=== PATIENT | female | born 1980 | race African-American/Black ===

== ENCOUNTER 2020-08-11 18:23 | Emergency (ER) | payer OTHER, SELFPAY ==
[2020-08-11 18:42] VITALS: BP 160/92; PULSE 66; RESP 18; TEMP 37.3; O2SAT 98; BMI 30.9
[2020-08-11 21:13] LABS: MANUAL DIFF FLAG NO
[2020-08-11] MEDS: ondansetron HCL 4 MG/2 ML VIAL IVPUSH ×2 (21:17→23:56)
[2020-08-11] MEDS: 0.9 % Sodium Chloride 1,000 ML 999 ML IV ×2 (21:17→21:58)
[2020-08-11 21:21] LABS: Basophils Percent Auto 0.2 % (0-2); Hematocrit 34.7 % (37-47); Hemoglobin 11.8 g/dl (12.0-16.0); Imm Gran Abs Auto 0.03 X10*3/uL (0.00-0.03); Imm Gran Pct Auto 0.3 % (0.0-0.4); Lymphocytes Absolute Auto 1.5 X10*3/uL (1.2-4.9); Lymphocytes Percent Auto 15.9 % (20-40); Mean Corpuscular Hemoglobin 31.2 pg (27.0-33.0); Mean Corpuscular Volume 91.8 fL (80-98); Mean Platelet Volume 9.5 fL (9.4-12.3); Monocytes Absolute Auto 0.5 X10*3/uL (0.1-1.2); Monocytes Percent Auto 5.4 % (2-11); Neutrophils Absolute Auto 7.4 X10*3/uL (2.0-8.3); Neutrophils Percent Auto 78.2 % (45-73); Platelet Count 279 X10*3/uL (160-400); Red Blood Count 3.78 X10*6/uL (4.20-5.50); Red Cell Distribution Width 13.6 % (11.0-16.0); White Blood Count 9.4 X10*3/uL (4.8-10.8)
--- NOTE | 2020-08-11 21:21 | PC.NURSE ---
Pt found resting in bed with blanket covering head. Pt reports a recent tummy tuck on 07/25, states her abdominal drain was removed on Monday 08/07. Pt reports +N/V/D x 3 days, states she has been unable to eat or hold her medications down. Pt ambulating to the bathroom to provide urine sample. IV established, labs and UA obtained and sent. VSS at this time. Awaiting primary MD davis. Continue to monitor.
[2020-08-11 21:22] VITALS: BP 141/72; PULSE 52; RESP 18; TEMP 36.9; O2SAT 100
--- NOTE | 2020-08-11 21:26 | PC.NURSE ---
at bedside for primary eval.
[2020-08-11 21:34] LABS: Appearance Urine HAZY; Color Urine YELLOW; Glucose Urine UA NEG (NEG); Leukocyte Esterase Urine 1+ (NEG); Nitrite Urine POS (NEG); Specific Gravity - Urine 1.025 (1.005-1.025); UACC Culture Trigger YES; Urine Blood 1+ (NEG); Urine Ketones 5 MG/DL (NEG); Urine Protein NEG (NEG-TRACE)
--- NOTE | 2020-08-11 21:38 | ED.GENADULT ---
HPI - General Adult General Chief complaint: General Medical Stated complaint: vomiting Time Seen by Provider: 08/11/20 21:38 Source: patient Mode of arrival: ambulatory History of Present Illness HPI narrative: This is a 40-year-old female who presents with 3 days of nausea, vomiting, nonbloody diarrhea that started after she ate leftover meat loaf and she denies any associated fever, chills, urinary pain/burning/frequency. However, her history is significant for having had a abdominal plasty on 07/25 in [place]. Patient denies any redness/swelling/drainage from the site and reports that her drain was removed 4 days ago. Related Data Previous Rx's Medication Instructions Recorded ciprofloxacin HCl [Cipro] 500 mg PO Q12H 7 Days #14 tab 08/12/20 ondansetron HCl [Zofran] 4 mg PO Q8H PRN #7 tab 08/12/20 Allergies Allergy/AdvReac Type Severity Reaction Status Date / Time No Known Allergies Allergy Verified 08/11/20 21:17 Review of Systems Review of Systems: Pertinent positives and negatives as stated in HPI 10 point review of systems is otherwise negative. PMFSH Past Medical History Source: nursing notes reviewed Social History Social History Advance Directives: No Advance Directives Information Provided: No Patient : No Physical Exam Vital Signs: Vital Signs: Last Vital Signs Temp 98.5 F 08/11/20 21:22 Pulse 52 08/11/20 21:22 Resp 20 08/11/20 23:58 BP 175/82 H 08/11/20 23:58 Pulse Ox 100 08/11/20 21:22 Body Mass Index 30.9 VITAL SIGNS: Reviewed. GENERAL: Well developed, well nourished, in no acute distress. HEAD: Normocephalic/atraumatic EYES: PERRLA, EOMI OROPHARYNX: no oral lesions noted, posterior pharynx clear LUNGS: Normal breath sounds. No adventitious sounds or accessory muscle use. SpO2<100> CARDIOVASCULAR: Regular rate and rhythm without noted murmurs ABDOMEN: Soft, non-tender, non-distended with bowel sounds. NEUROLOGIC: Alert and oriented x 4. Course Course Course Narrative: This is a 40-year-old female with history and clinical presentation suspicious for food poisoning, gastroenteritis, but will rule out UTI and no evidence for obstructive symptoms. Review of all investigations consistent with UTI, but still may have a component of food poisoning. Patient was given IV fluid resuscitation, initial antibiotics, and on re-evaluation reports improvement of symptoms and was able to tolerate oral intake. She will be discharged home in stable condition with instructions to complete entire course of antibiotics and follow up with her primary care provider. Medical Decision Making Lab Data Result diagrams: 08/11/20 21:08 08/11/20 21:08 Labs: Lab Results 08/11/20 08/11/20 08/11/20 Range/Units 21:08 21:08 21:08 WBC 9.4 (4.8-10.8) X10*3/uL RBC 3.78 L (4.20-5.50) X10*6/uL Hgb 11.8 L (12.0-16.0) g/dl Hct 34.7 L (37-47) % MCV 91.8 (80-98) fL MCH 31.2 (27.0-33.0) pg MCHC 34.0 (31.0-35.0) g/dl RDW 13.6 (11.0-16.0) % Plt Count 279 (160-400) X10*3/uL MPV 9.5 (9.4-12.3) fL Immature Gran % (Auto) 0.3 (0.0-0.4) % Neut % (Auto) 78.2 H (45-73) % Lymph % (Auto) 15.9 L (20-40) % [place] % (Auto) 5.4 (2-11) % Eos % (Auto) 0.0 (0-4) % Baso % (Auto) 0.2 (0-2) % Lymph # (Auto) 1.5 (1.2-4.9) X10*3/uL [place] # (Auto) 0.5 (0.1-1.2) X10*3/uL Eos # (Auto) 0.0 (0.0-0.4) X10*3/uL Baso # (Auto) 0.0 (0.0-0.2) X10*3/uL Abs Immat Gran (auto) 0.03 (0.00-0.03) X10*3/uL Absolute Neuts (auto) 7.4 (2.0-8.3) X10*3/uL Absolute Nucleated RBC 0.000 (0.0-0.012) X10*3/uL Nucleated RBC % (auto) 0.0 (0.0-0.2) /100WBC Sodium 137 (135-145) mmol/L Potassium 3.8 (3.3-5.1) mmol/L Chloride 101 (96-108) mmol/L Carbon Dioxide 25 (22-29) mmol/L Anion Gap 15 (12-20) BUN 12 (9-16) mg/dL Creatinine 0.77 (0.5-1.4) mg/dL Estim Creat Clear Calc 98.3 Estimated GFR > 60 Random Glucose 92 (60-115) mg/dL Calcium 9.5 (8.4-10.2) mg/dL Total Bilirubin 0.8 (0.0-1.0) mg/dL AST 40 H (5-31) U/L ALT 76 H (0-31) U/L Alkaline Phosphatase 66 (39-117) U/L Total Protein 7.0 (6.5-8.0) g/dL Albumin 4.0 (3.5-5.0) g/dL Lipase 24 (8-78) U/L Urine Color YELLOW Urine Appearance [place] Urine pH 6.0 (5.0-8.0) Ur Specific [place] 1.025 (1.005-1.025) Urine Protein NEG (NEG-TRACE) MG/DL Urine Glucose (UA) NEG (NEG) MG/DL Urine Ketones 5 (NEG) MG/DL Urine Blood 1+ H (NEG) Urine Nitrite POS H (NEG) Ur Leukocyte Esterase 1+ H (NEG) Urine RBC 1-4 (0) /HPF Urine WBC 1-4 (0-4) /HPF Ur Squamous Epith Cells TRACE /LPF Urine Bacteria 2+ /LPF Discharge Plan Discharge Clinical Impression: Pyelonephritis, Food poisoning Patient Disposition: Home, Self-Care Instructions: Kidney Infection (ED), Food Poisoning (ED) Additional Instructions: 1. Increase fluid hydration especially with water. 2. Please follow-up with the primary care provider in the next 2-3 days for re-evaluation. Return to the ER for any acute worsening of your symptoms. Prescriptions: New ciprofloxacin HCl [Cipro] 500 mg tablet 500 mg PO Q12H 7 Days Qty: 14 RF: 0 ondansetron HCl [Zofran] 4 mg tablet 4 mg PO Q8H PRN (Reason: nausea and vomiting) Qty: 7 RF: 0 Referrals: Physician,Unknown [Primary Care Provider] - 2 days
[2020-08-11 21:43] LABS: Bacteria Urine 2+ /LPF; Squamous Epithelial Cell Urine TRACE /LPF
[2020-08-11 21:50] LABS: Alanine Aminotransferase 76 U/L (0-31); Alkaline Phosphatase 66 U/L (39-117); Anion Gap 15 (12-20); Aspartate Amino Transferase 40 U/L (5-31); Bilirubin Total 0.8 mg/dL (0.0-1.0); Blood Urea Nitrogen 12 mg/dL (9-16); Calcium 9.5 mg/dL (8.4-10.2); Carbon Dioxide 25 mmol/L (22-29); Chloride 101 mmol/L (96-108); Creatinine Clr Calc Pharmacy 98.3; Estimated Glomerular Filt Rate > 60; Glucose Random 92 mg/dL (60-115); Lipase 24 U/L (8-78); Potassium 3.8 mmol/L (3.3-5.1); Sodium 137 mmol/L (135-145)
[2020-08-11] MEDS: cefTRIAXone sodium 1 GM in 0.9 % Sodium Chloride 50 ML IV (21:58)
--- NOTE | 2020-08-11 22:01 | PC.NURSE ---
Medicated per APR. Pt resting in bed at this time. Continue to monitor.
[2020-08-11 23:58] VITALS: BP 175/82; RESP 20
--- NOTE | 2020-08-12 00:01 | PC.NURSE ---
Medicated per MAR. VSS. Pt trying PO challenge. Continue to monitor.
[2020-08-12 01:20] VITALS: BP 149/88; PULSE 60; RESP 16
== END 2020-08-12 01:22 | disposition home or self-care (01) ==
PROVIDERS: Emergency Provider Student in an Organized Health Care Education/Training Program
DX: A05.9 Bacterial foodborne intoxication, unspecified (principal); N12 Tubulo-interstitial nephritis, not specified as acute or chronic
CPT/HCPCS: 36415; 80053; 81001; 81003; 83690; 85025; 87086; 87088; 87186; 96361; 96365; 96375; 96376; 99284; J0696; J2405

== ENCOUNTER 2020-09-10 07:52 | Emergency (ER) | payer OTHER, SELFPAY ==
[2020-09-10 08:03] VITALS: BP 146/88; PULSE 82; RESP 18; TEMP 36.6; O2SAT 98; BMI 31.4
[2020-09-10] MEDS: ondansetron HCL 4 MG/2 ML VIAL IVPUSH (08:50)
[2020-09-10] MEDS: 0.9 % Sodium Chloride 1,000 ML 999 ML IVCONT (08:50)
[2020-09-10 08:51] LABS: MANUAL DIFF FLAG NO
[2020-09-10 08:54] LABS: Basophils Percent Auto 0.4 % (0-2); Eosinophils Absolute Auto 0.2 X10*3/uL (0.0-0.4); Glucose Urine UA NEG (NEG); Hematocrit 38.4 % (37-47); Hemoglobin 12.4 g/dl (12.0-16.0); Imm Gran Abs Auto 0.02 X10*3/uL (0.00-0.03); Imm Gran Pct Auto 0.3 % (0.0-0.4); Leukocyte Esterase Urine NEG (NEG); Lymphocytes Absolute Auto 1.8 X10*3/uL (1.2-4.9); Lymphocytes Percent Auto 22.8 % (20-40); Mean Corpuscular HGB Conc 32.3 g/dl (31.0-35.0); Mean Corpuscular Hemoglobin 30.6 pg (27.0-33.0); Mean Corpuscular Volume 94.8 fL (80-98); Mean Platelet Volume 10.4 fL (9.4-12.3); Monocytes Absolute Auto 0.5 X10*3/uL (0.1-1.2); Monocytes Percent Auto 5.9 % (2-11); Neutrophils Absolute Auto 5.4 X10*3/uL (2.0-8.3); Neutrophils Percent Auto 68.6 % (45-73); Nitrite Urine NEG (NEG); Platelet Count 174 X10*3/uL (160-400); Red Blood Count 4.05 X10*6/uL (4.20-5.50); Red Cell Distribution Width 12.9 % (11.0-16.0); Specific Gravity - Urine 1.025 (1.005-1.025); Urine Blood TRACE (NEG); Urine Ketones NEG (NEG); Urine Protein NEG (NEG-TRACE); White Blood Count 7.9 X10*3/uL (4.8-10.8)
[2020-09-10 08:56] LABS: Appearance Urine CLEAR; Color Urine YELLOW
[2020-09-10 08:57] LABS: UPreg QC Valid YES; Urine Pregnancy NEGATIVE (NEGATIVE)
[2020-09-10 08:59] LABS: INTERNATIONAL NORM RATIO 0.9 (0.9-1.1); Prothrombin Time 10.3 SEC (9.9-13.0)
[2020-09-10 09:01] LABS: Partial Thromboplastin Time 30.8 SEC (24.1-38.0)
[2020-09-10 09:08] LABS: Squamous Epithelial Cell Urine TRACE /LPF; WBC Urine 0 /HPF (0-4)
--- NOTE | 2020-09-10 09:12 | ED_ITS ---
HPI - General Adult General Chief complaint: General Medical Stated complaint: Stomach Pain, Possible swelling Time Seen by Provider: 09/10/20 08:07 Source: patient Mode of arrival: ambulatory History of Present Illness HPI narrative: 40-year-old female with a past medical history of and abdominoplasty in [place] on 07/25/2020 presenting to the ED complaining of abdominal discomfort, bloating/distension with suspected fluid buildup since 1 week s/p procedure. Also reports nausea. Was seen at [facility] on Friday had labs/US showing seroma, was recommended to follow up outpatient with Plastic surgery however cannot get appointment until October. Reports continued pain. Denies fever, chills, vomiting, diarrhea /constipation, dysuria / hematuria. Related Data Previous Rx's Medication Instructions Recorded ciprofloxacin HCl [Cipro] 500 mg PO Q12H 7 Days #14 tab 08/12/20 ondansetron HCl [Zofran] 4 mg PO Q8H PRN #7 tab 08/12/20 Allergies Allergy/AdvReac Type Severity Reaction Status Date / Time No Known Allergies Allergy Verified 08/11/20 21:17 Review of Systems Review of Systems: Constitutional: No Fever, No Chills, No Fatigue, No So ise Cardiovascular: No Chest Pain, No SOB, No Edema Respiratory: No Cough, No Dyspnea Gastrointestinal: + Nausea, No Vomiting, No Diarrhea, No Constipation, + Abdominal pain Genitourinary: No Dysuria, No Urinary Frequency, No Hematuria, No Flank Pain Musculoskeletal: No joint pain, No Myalgias Skin: No Skin Lesions, No rash Neuro: No Weakness, No Headache Yes all other systems are reviewed and are negative [facility] Past Medical History Attestation statement: The following information was validated with the patient. Surgical History (Updated 09/10/20 @ 08:07 by Addis Henson) Hx of abdominoplasty Social History Social History Advance Directives: Yes Advance Directives Information Provided: Yes Advance Directives on File: No Physical Exam Vital Signs: Vital Signs: Last Vital Signs Temp 97.9 F 09/10/20 08:03 Pulse 82 09/10/20 08:03 Resp 18 09/10/20 08:03 BP 146/88 H 09/10/20 08:03 Pulse Ox 98 09/10/20 08:03 Body Mass Index 31.4 Const: General: cooperative, healthy appearing and no acute distress Orientation/consciousness: patient oriented x3 Limitations: no limitations HENMT: Head: Yes normal to inspection Ears: hearing grossly normal bilaterally General nose exam: Normal external nose present Face and sinus: Yes normal facial exam Eyes: General: appearance normal, both eyes and all related structures EOM: EOMs intact bilaterally Neck: Neck: Yes normal visual inspection and Yes no meningeal signs Resp: Effort & Inspection: normal respiratory effort and no respiratory distress Cardio: Rate: regular rate GI: Other: + abdominal swelling. Incision site noted, dry/clean & intact without surrounding cellulitis, no fluctuance /induration, no drainage or dehiscence Inspection: Yes normal to inspection Palpation (GI): Soft to palpation, nontender (RLQ/lower abdomen), no guarding and not rigid : General: Yes no CVA tenderness Back/Spine/Pelvis: Back: no CVA tenderness Skin: Rashes: no rashes Wounds: no wounds Neuro: General: patient oriented x3 and no meningeal signs Gait exam (Neuro): Normal gait present Extrem: General: Yes normal to inspection Course Course Course Narrative: -no leukocytosis, H/H stable, coags stable, labs otherwise unremarkable. UA negative. Patient can follow-up with General surgery, Dr. Roman Labs/results discussed with patient including worrisome signs and symptoms and needed follow-up with General surgery. Medical Decision Making MDM Narrative Medical decision making narrative: 40-year-old female with a past medical history of and abdominoplasty in [place] on 07/25/2020 presenting to the ED complaining of abdominal discomfort, bloating/distension with suspected fluid buildup since 1 week s/p procedure. Also reports nausea. On exam VSS, NAD/ nontoxic, abdomen soft with notable swelling and TTP, no rebound or guarding. Incision site looks dry and clean /no cellulitis or drainage. Concern for seroma / hematoma. Lower concern for abscess or underlying infection. Obtained ultrasound report from a 09/04/2020 showing right mid lower quadrant postsurgical seroma measuring up to 16.4 cm. A smaller postsurgical seroma in the left mid lower quadrant is noted measuring up to 5.9 centimetres plan: Labs, UA, consult surgery Lab Data Result diagrams: 09/10/20 08:46 09/10/20 08:45 Labs: Lab Results 09/10/20 09/10/20 09/10/20 Range/Units 08:45 08:45 08:46 WBC 7.9 (4.8-10.8) X10*3/uL RBC 4.05 L (4.20-5.50) X10*6/uL Hgb 12.4 (12.0-16.0) g/dl Hct 38.4 (37-47) % MCV 94.8 (80-98) fL MCH 30.6 (27.0-33.0) pg MCHC 32.3 (31.0-35.0) g/dl RDW 12.9 (11.0-16.0) % Plt Count 174 D (160-400) X10*3/uL MPV 10.4 (9.4-12.3) fL Immature Gran % (Auto) 0.3 (0.0-0.4) % Neut % (Auto) 68.6 (45-73) % Lymph % (Auto) 22.8 (20-40) % [place] % (Auto) 5.9 (2-11) % Eos % (Auto) 2.0 (0-4) % Baso % (Auto) 0.4 (0-2) % Lymph # (Auto) 1.8 (1.2-4.9) X10*3/uL [place] # (Auto) 0.5 (0.1-1.2) X10*3/uL Eos # (Auto) 0.2 (0.0-0.4) X10*3/uL Baso # (Auto) 0.0 (0.0-0.2) X10*3/uL Abs Immat Gran (auto) 0.02 (0.00-0.03) X10*3/uL Absolute Neuts (auto) 5.4 (2.0-8.3) X10*3/uL Absolute Nucleated RBC 0.000 (0.0-0.012) X10*3/uL Nucleated RBC % (auto) 0.0 (0.0-0.2) /100WBC PT 10.3 (9.9-13.0) SEC INR 0.9 (0.9-1.1) APTT 30.8 (24.1-38.0) SEC Sodium 141 (135-145) mmol/L Potassium 4.2 (3.3-5.1) mmol/L Chloride 108 (96-108) mmol/L Carbon Dioxide 24 (22-29) mmol/L Anion Gap 13 (12-20) BUN 15 (9-16) mg/dL Creatinine 0.83 (0.5-1.4) mg/dL Estim Creat Clear Calc 92.0 Estimated GFR > 60 Random Glucose 86 (60-115) mg/dL Calcium 9.3 (8.4-10.2) mg/dL Magnesium 1.9 (1.6-2.6) mg/dL Total Bilirubin 0.4 (0.0-1.0) mg/dL Direct Bilirubin < 0.2 (0.0-0.5) mg/dL AST 17 D (5-31) U/L ALT 23 (0-31) U/L Alkaline Phosphatase 74 (39-117) U/L Total Protein 7.4 (6.5-8.0) g/dL Albumin 4.2 (3.5-5.0) g/dL Lipase 16 (8-78) U/L Urine Color Urine Appearance Urine pH (5.0-8.0) Ur Specific [place] (1.005-1.025) Urine Protein (NEG-TRACE) MG/DL Urine Glucose (UA) (NEG) MG/DL Urine Ketones (NEG) MG/DL Urine Blood (NEG) Urine Nitrite (NEG) Ur Leukocyte Esterase (NEG) Urine RBC (0) /HPF Urine WBC (0-4) /HPF Ur Squamous Epith Cells /LPF Urine Bacteria /LPF Urine Test (NEGATIVE) 09/10/20 09/10/20 Range/Units 08:46 08:46 WBC (4.8-10.8) X10*3/uL RBC (4.20-5.50) X10*6/uL Hgb (12.0-16.0) g/dl Hct (37-47) % MCV (80-98) fL MCH (27.0-33.0) pg MCHC (31.0-35.0) g/dl RDW (11.0-16.0) % Plt Count (160-400) X10*3/uL MPV (9.4-12.3) fL Immature Gran % (Auto) (0.0-0.4) % Neut % (Auto) (45-73) % Lymph % (Auto) (20-40) % [place] % (Auto) (2-11) % Eos % (Auto) (0-4) % Baso % (Auto) (0-2) % Lymph # (Auto) (1.2-4.9) X10*3/uL [place] # (Auto) (0.1-1.2) X10*3/uL Eos # (Auto) (0.0-0.4) X10*3/uL Baso # (Auto) (0.0-0.2) X10*3/uL Abs Immat Gran (auto) (0.00-0.03) X10*3/uL Absolute Neuts (auto) (2.0-8.3) X10*3/uL Absolute Nucleated RBC (0.0-0.012) X10*3/uL Nucleated RBC % (auto) (0.0-0.2) /100WBC PT (9.9-13.0) SEC INR (0.9-1.1) APTT (24.1-38.0) SEC Sodium (135-145) mmol/L Potassium (3.3-5.1) mmol/L Chloride (96-108) mmol/L Carbon Dioxide (22-29) mmol/L Anion Gap (12-20) BUN (9-16) mg/dL Creatinine (0.5-1.4) mg/dL Estim Creat Clear Calc Estimated GFR Random Glucose (60-115) mg/dL Calcium (8.4-10.2) mg/dL Magnesium (1.6-2.6) mg/dL Total Bilirubin (0.0-1.0) mg/dL Direct Bilirubin (0.0-0.5) mg/dL AST (5-31) U/L ALT (0-31) U/L Alkaline Phosphatase (39-117) U/L Total Protein (6.5-8.0) g/dL Albumin (3.5-5.0) g/dL Lipase (8-78) U/L Urine Color YELLOW Urine Appearance CLEAR Urine pH 6.0 (5.0-8.0) Ur Specific [place] 1.025 (1.005-1.025) Urine Protein NEG (NEG-TRACE) MG/DL Urine Glucose (UA) NEG (NEG) MG/DL Urine Ketones NEG (NEG) MG/DL Urine Blood TRACE (NEG) Urine Nitrite NEG (NEG) Ur Leukocyte Esterase NEG (NEG) Urine RBC 1-4 (0) /HPF Urine WBC 0 (0-4) /HPF Ur Squamous Epith Cells TRACE /LPF Urine Bacteria NONE /LPF Urine Test NEGATIVE (NEGATIVE) Discharge Plan Discharge Clinical Impression: Seroma Patient Disposition: Home, Self-Care Instructions: Seroma (DC) Additional Instructions: YOUR ULTRASOUND RESULTS WERE OBTAINED FROM [facility] SHOWING A 16 CENTIMETRE SEROMA IN YOUR RIGHT LOWER QUADRANT AND A 6 CM IN YOUR LEFT YOUR BLOOD WORK WAS REASSURING IT IS IMPORTANT FOR YOU TO FOLLOW-UP WITH GENERAL SURGERY/PLASTIC SURGERY D ISCUSSED IF HER PAIN PERSISTS OR WORSENS, BECOMES UNBEARABLE, YOU ARE UNABLE TO EAT OR DRINK, OR DEVELOPED FEVER PLEASE RETURN TO THE ED Prescriptions: No Action ciprofloxacin HCl [Cipro] 500 mg tablet 500 mg PO Q12H 7 Days Qty: 14 RF: 0 ondansetron HCl [Zofran] 4 mg tablet 4 mg PO Q8H PRN (Reason: nausea and vomiting) Qty: 7 RF: 0 Referrals: Wicho Roman MD [Physician] - 5 days
[2020-09-10 09:21] LABS: Alanine Aminotransferase 23 U/L (0-31); Albumin Level 4.2 g/dL (3.5-5.0); Alkaline Phosphatase 74 U/L (39-117); Anion Gap 13 (12-20); Aspartate Amino Transferase 17 U/L (5-31); Bilirubin Direct < 0.2 mg/dL (0.0-0.5); Bilirubin Total 0.4 mg/dL (0.0-1.0); Blood Urea Nitrogen 15 mg/dL (9-16); Calcium 9.3 mg/dL (8.4-10.2); Carbon Dioxide 24 mmol/L (22-29); Chloride 108 mmol/L (96-108); Estimated Glomerular Filt Rate > 60; Glucose Random 86 mg/dL (60-115); Lipase 16 U/L (8-78); Magnesium 1.9 mg/dL (1.6-2.6); Potassium 4.2 mmol/L (3.3-5.1); Sodium 141 mmol/L (135-145); Total Protein 7.4 g/dL (6.5-8.0)
[2020-09-10 10:32] LABS: C Reactive Protein 0.47 mg/dL (< or = 0.50)
[2020-09-10 11:02] LABS: Erythrocyte Sedimentation Rate 20 MM/HR (0-20)
== END 2020-09-10 11:02 | disposition home or self-care (01) ==
PROVIDERS: Physician Assistant; Emergency Provider Emergency Medicine
DX: K91.872 Postprocedural seroma of a digestive system organ or structure following a digestive system procedure (principal); Z79.899 Other long term (current) drug therapy
CPT/HCPCS: 36415; 80048; 80076; 81001; 81025; 83690; 83735; 85025; 85610; 85652; 85730; 86140; 96365; 96375; 99283; 99284; J2405

== ENCOUNTER → 2020-09-12 08:32 | Outpatient (BNVA) | payer OTHER, SELFPAY | PROVIDERS: Visit Provider Surgery | DX: L76.34 Postprocedural seroma of skin and subcutaneous tissue following other procedure (principal); Z98.890 Other specified postprocedural states | CPT/HCPCS: 99202 ==

== ENCOUNTER 2020-10-03 10:22 | Outpatient (REF) | payer OTHER, SELFPAY ==
--- NOTE | ~2020-10-03 | US_ITS ---
EXAMINATION: ULTRASOUND-GUIDED ABDOMINAL WALL DRAINAGE CLINICAL INFORMATION: Status post tummy tuck with large post surgical fluid collection/seroma in the abdominal wall. COMPARISON: None. TECHNIQUE: Following explaining ultrasound-guided abdominal wall fluid collection drainage procedure, benefits and risk, a written consent was obtained. Preliminary ultrasound imaging was obtained through the abdomen and an optimal site was selected along the abdominal wall and marked. The marked site was cleaned and draped in usual sterile manner. 1% lidocaine was injected puncture site. Under sterile ultrasound guidance, a single wall spinal needle 20-gauge was inserted into the fluid collection. After observing fluid returned a syringe attached and aspiration was performed. After obtaining moderate amount of fluid collection and no more fluid drainage seen, the needle was withdrawn and complete hemostasis achieved. Patient tolerated procedure extremely well. Postprocedure simple Band-Aid was applied. FINDINGS: On preliminary ultrasound imaging, there is a thick band of hypoechoic fluid collection along the right abdominal wall slightly superior but deep to the surgical incision site. There are several septations seen throughout the fluid collection, likely some loculation. Under ultrasound guidance, approximately 16 mL of clear but serous fluid was drained. None of this fluid was sent to lab. Postprocedure ultrasound revealed decreased fluid collection. US/US drain soft tissue w imaging IMPRESSION: Successful ultrasound fluoroscopy-guided abdominal wall serous fluid drainage. Small amount of fluid remaining post drainage. Patient tolerated procedure somewhat well.
== END 2020-10-03 10:23 | disposition home or self-care (01) ==
LOC: HO.US 10:22
PROVIDERS: Visit Provider Surgery
DX: T81.89XA Other complications of procedures, not elsewhere classified, initial encounter (principal); R19.03 Right lower quadrant abdominal swelling, mass and lump; Z98.890 Other specified postprocedural states
CPT/HCPCS: 10030

== ENCOUNTER → 2020-10-19 09:19 | Outpatient (BNVA) | payer OTHER, SELFPAY | PROVIDERS: PCP Nurse Practitioner; Visit Provider Surgery | DX: L02.211 Cutaneous abscess of abdominal wall (principal); Z98.890 Other specified postprocedural states | CPT/HCPCS: 99212 ==

== ENCOUNTER → 2020-12-12 15:00 | Outpatient (BNVA) | payer OTHER, SELFPAY | PROVIDERS: PCP Nurse Practitioner; Visit Provider Surgery | DX: Z98.890 Other specified postprocedural states (principal) | CPT/HCPCS: 99212 ==